=== PATIENT | male | born 1980 | race Caucasian/White ===

== ENCOUNTER 2019-08-31 14:05 | Observation (INO) ==
[2019-08-31] MEDS ORDERED: Isovue-370 500 ML BOTTLE IVP ONE (14:58)
[2019-08-31] MEDS ORDERED: Vancomycin 1,500 MG/265 ML IV.SOLN IVPB ONE (15:10)
[2019-08-31 15:37] LABS: Basophils # 0.1 K/mcL (0.0-0.2); Basophils % 0.5 %; Eosinophils % 0.3 %; Hematocrit 44.6 % (37.5-50.1); Hemoglobin 15.2 g/dL (12.9-16.9); Immature Granulocytes % 0.3 % (0-4); Lymphocytes # 2.9 K/mcL (0.6-4.6); Lymphocytes % 25.2 %; Mean Corpuscular HGB Conc 34.1 g/dL (31.6-35.5); Mean Corpuscular Hemoglobin 29.2 pg (28.0-33.3); Mean Corpuscular Volume 85.8 fL (83.0-100.0); Mean Platelet Volume 8.8 fL (9.4-12.4); Monocytes # 0.8 K/mcL (0.0-1.3); Monocytes % 7.1 %; Neutrophils # 7.8 K/mcL (1.6-8.9); Platelet Count 381 K/mcL (140-400); Red Cell Distribution Width 13.1 % (11.5-14.5); Segmented Neutrophils % 66.6 %; White Blood Count 11.7 K/mcL (4.3-11.1)
[2019-08-31 15:59] LABS: Alanine Aminotransferase 30 Units/L (7-52); Albumin 4.3 g/dL (3.5-5.7); Alkaline Phosphatase 131 Units/L (34-104); Aspartate Amino Transferase 19 Units/L (13-39); BUN/Creatinine Ratio 21 (6-26); Bilirubin,Total 0.5 mg/dL (0.3-1.0); Blood Urea Nitrogen 15 mg/dL (6-20); Calcium 9.2 mg/dL (8.6-10.3); Carbon Dioxide 24 mEq/L (23-29); Chloride 101 mEq/L (98-107); Globulin 4.4 g/dL (2.4-3.5); Glucose 110 mg/dL (70-105); Lipase 59 Units/L (11-82); Osmolality,Calculated 277 (280-300); Potassium 3.3 mEq/L (3.5-5.1); Sodium 133 mEq/L (136-145); Total Protein 8.7 g/dL (6.4-8.9); eGFR For African Americans > 60 (> 60); eGFR For Non-African Americans > 60 (> 60)
[2019-08-31] MEDS ORDERED: Potassium Chloride 40 MEQ, Lidocaine 1% 2 ML in 0.9 % Sodium Chloride 500 ML IVPB ONE (17:44)
[2019-08-31] MEDS ORDERED: *HR* FentaNYL (PF) 100 MCG/2 ML VIAL IVP STA (17:54)
[2019-08-31] MEDS ORDERED: Lidocaine/EPI 1:100k 2% 20 ML VIAL INFILT STA (17:55)
[2019-08-31] MEDS ORDERED: Naloxone 0.4 MG/ML INJ IVP PRN (20:10)
[2019-08-31] MEDS ORDERED: Ketorolac 15 MG/ML VIAL IVP PRN (20:16)
[2019-08-31] MEDS ORDERED: *HR* OxyCODONE Immed Rel 5 MG TABLET PO PRN (20:16)
[2019-08-31] MEDS ORDERED: Acetaminophen 325 MG TABLET PO PRN (20:16)
[2019-08-31] MEDS ORDERED: *HR* LORazepam 2 MG/ML VIAL IVP ONE (21:59)
[2019-08-31] MEDS ORDERED: *HR* Promethazine 25 MG/ML VIAL IVP ONE (23:37)
[2019-09-01] MEDS ORDERED: *HR* LORazepam 2 MG/ML VIAL ONE (01:19)
[2019-09-01] MEDS ORDERED: levETIRAcetam 1,000 MG in 0.9 % Sodium Chloride 100 ML IVPB ONE (01:25)
[2019-09-01] MEDS ORDERED: 0.9 % Sodium Chloride 1,000 ML IVC SCH (01:30)
[2019-09-01] MEDS ORDERED: *HR* LORazepam 2 MG/ML VIAL IVP ONE (01:42)
[2019-09-01 01:46] LABS: Basophils # 0.1 K/mcL (0.0-0.2); Basophils % 0.5 %; Eosinophils # 0.1 K/mcL (0.0-0.6); Eosinophils % 0.5 %; Hematocrit 42.7 % (37.5-50.1); Hemoglobin 14.7 g/dL (12.9-16.9); Immature Granulocytes % 0.3 % (0-4); Lymphocytes # 2.7 K/mcL (0.6-4.6); Lymphocytes % 24.2 %; Mean Corpuscular HGB Conc 34.4 g/dL (31.6-35.5); Mean Corpuscular Hemoglobin 29.2 pg (28.0-33.3); Mean Corpuscular Volume 84.7 fL (83.0-100.0); Mean Platelet Volume 8.7 fL (9.4-12.4); Monocytes # 1.1 K/mcL (0.0-1.3); Monocytes % 9.5 %; Neutrophils # 7.3 K/mcL (1.6-8.9); Platelet Count 361 K/mcL (140-400); Red Blood Count 5.04 M/mcL (4.19-5.50); Red Cell Distribution Width 13.1 % (11.5-14.5); White Blood Count 11.2 K/mcL (4.3-11.1)
[2019-09-01 02:04] LABS: Bilirubin,Urine Negative (Negative); Blood,Urine Negative (Negative); Clarity,Urine Clear (Clear); Color,Urine Dark Yellow (Yellow); Glucose,Urine (UA) Normal (Normal); Ketones,Urine Negative (Negative); Leukocyte Esterase,Urine Negative (Negative); Nitrite,Urine Negative (Negative); Protein,Urine 30 mg/dL (Neg-Trace); Specific Gravity,Urine > 1.030 (1.010-1.025); Urobilinogen,Urine Normal (Normal)
[2019-09-01 02:05] LABS: Squamous Epithelial Cell,Urine Many per lpf (None-Few); WBC,Urine 0-3 per hpf (0-3)
[2019-09-01 02:14] LABS: Amphetamine Screen,Urine Positive ng/mL (Cutoff=1000); Barbiturate Screen,Urine Negative ng/mL (Cutoff=200); Benzodiazepines Screen,Urine Negative ng/mL (Cutoff=200); Cannabinoid Screen,Urine Positive ng/mL (Cutoff = 50); Cocaine Screen,Urine Negative ng/mL (Cutoff= 300); Opiate Screen,Urine Positive ng/mL (Cutoff=300); Phencyclidine Screen,Urine Negative ng/mL (Cutoff=25)
[2019-09-01 02:19] LABS: Bacteria,Urine Few per hpf (None-Few); Hyaline Casts,Urine Few per lpf (None-Few); Mucus,Urine Few per lpf (Few)
[2019-09-01 02:29] LABS: Alanine Aminotransferase 27 Units/L (7-52); Albumin 3.9 g/dL (3.5-5.7); Alkaline Phosphatase 124 Units/L (34-104); Aspartate Amino Transferase 18 Units/L (13-39); BUN/Creatinine Ratio 20 (6-26); Bilirubin,Total 0.6 mg/dL (0.3-1.0); Blood Urea Nitrogen 17 mg/dL (6-20); Calcium 8.8 mg/dL (8.6-10.3); Carbon Dioxide 24 mEq/L (23-29); Chloride 105 mEq/L (98-107); Creatine Kinase 83 Units/L (30-223); Globulin 3.9 g/dL (2.4-3.5); Glucose 106 mg/dL (70-105); Magnesium 2.2 mg/dL (1.6-2.6); Osmolality,Calculated 288 (280-300); Phenytoin (Dilantin) < 0.5 mcg/mL (10.0-20.0); Potassium 3.4 mEq/L (3.5-5.1); Sodium 138 mEq/L (136-145); Total Protein 7.8 g/dL (6.4-8.9); Troponin I < 0.03 ng/mL (< 0.04); eGFR For African Americans > 60 (> 60); eGFR For Non-African Americans > 60 (> 60)
[2019-09-01] MEDS ORDERED: *HR* LORazepam 2 MG/ML VIAL IVP PRN ×5 (03:28→08:32)
[2019-09-01 04:06] LABS: Basophils # 0.1 K/mcL (0.0-0.2); Basophils % 0.5 %; Eosinophils # 0.1 K/mcL (0.0-0.6); Eosinophils % 0.7 %; Hematocrit 42.2 % (37.5-50.1); Hemoglobin 14.1 g/dL (12.9-16.9); Immature Granulocytes % 0.3 % (0-4); Lymphocytes # 3.4 K/mcL (0.6-4.6); Lymphocytes % 30.7 %; Mean Corpuscular HGB Conc 33.4 g/dL (31.6-35.5); Mean Corpuscular Hemoglobin 28.5 pg (28.0-33.3); Mean Corpuscular Volume 85.3 fL (83.0-100.0); Mean Platelet Volume 8.8 fL (9.4-12.4); Monocytes # 0.9 K/mcL (0.0-1.3); Monocytes % 8.3 %; Neutrophils # 6.6 K/mcL (1.6-8.9); Platelet Count 341 K/mcL (140-400); Red Blood Count 4.95 M/mcL (4.19-5.50); Segmented Neutrophils % 59.5 %; White Blood Count 11.1 K/mcL (4.3-11.1)
[2019-09-01 04:26] LABS: Alanine Aminotransferase 24 Units/L (7-52); Albumin 3.8 g/dL (3.5-5.7); Alkaline Phosphatase 119 Units/L (34-104); Aspartate Amino Transferase 18 Units/L (13-39); BUN/Creatinine Ratio 22 (6-26); Bilirubin,Total 0.5 mg/dL (0.3-1.0); Blood Urea Nitrogen 18 mg/dL (6-20); Calcium 8.5 mg/dL (8.6-10.3); Carbon Dioxide 23 mEq/L (23-29); Chloride 105 mEq/L (98-107); Globulin 3.7 g/dL (2.4-3.5); Glucose 101 mg/dL (70-105); Osmolality,Calculated 284 (280-300); Potassium 3.3 mEq/L (3.5-5.1); Sodium 136 mEq/L (136-145); Total Protein 7.5 g/dL (6.4-8.9); eGFR For African Americans > 60 (> 60); eGFR For Non-African Americans > 60 (> 60)
[2019-09-01] MEDS ORDERED: *HR* Heparin 5,000 UNIT/ML VIAL SQ SCH (06:00)
[2019-09-01] MEDS: Calcium Gluconate 1gm/50mL 1 GM/50 ML BAG IVPB SCH ×2 (06:18→11:14)
[2019-09-01 09:56] LABS: Creatine Kinase 90 Units/L (30-223)
[2019-09-01] MEDS ORDERED: 0.9 % Sodium Chloride 1,000 ML ONE (12:09)
[2019-09-01] MEDS ORDERED: *HR* Midazolam HCl 2 MG/2 ML VIAL IV ONE (12:20)
[2019-09-01] MEDS ORDERED: Artificial Tears SOLN 15 ML BOTTLE BOTH EYES PRN (12:20)
[2019-09-01] MEDS ORDERED: Fosphenytoin 1,000 MG.PE in 0.9 % Sodium Chloride 50 ML IVPB ONE (13:07)
[2019-09-01 14:11] VITALS: BP 145/87
[2019-09-01] MEDS ORDERED: Artificial Tears SOLN 15 ML BOTTLE BOTH EYES SCH (16:00)
[2019-09-01] MEDS ORDERED: Thiamine (B-1) 100 MG, Folic Acid 1 MG, MVI, adult with vitamin K 10 ML in 0.9 % Sodi... IVPB SCH (18:00)
[2019-09-01] MEDS ORDERED: Famotidine 20 MG/2 ML VIAL IVP SCH (18:00)
[2019-09-01] MEDS ORDERED: Chlorhexidine Rinse 15 ML MOUTHWASH MM SCH (21:00)
[2019-09-01] MEDS ORDERED: FOSPHENYTOIN IVPB SCH (22:00)
[2019-09-01] MEDS ORDERED: SODIUM CHLORIDE 0.9% IVPB SCH (22:00)
[2019-09-01] MEDS ORDERED: [UNRECOGNIZED DRUG - OTHER] IVPB SCH (22:00)
== END 2019-09-01 15:00 | disposition short-term general hospital (02) ==
LOC: EMEROOARM 14:05 → 3ANU 14:05 → SUATTDRO 18:49 → 3ANU 19:40 → ICNU 09-01 11:57
PROVIDERS: ADMIT Family Medicine; ATTEND Family Medicine